=== PATIENT | female | born 1960 | race Caucasian/White ===

== ENCOUNTER → 2019-07-10 | Outpatient (CLI) | payer OTHER ==
[~2019-07-10] MED LIST: AMBIEN 5 MG TABL5 M1; AMITRIPTYLINE H75 M2; FLEXERIL; LANTUS SQ; NORCO 5-325 TA1 EACH PO; NOVOLOG100 UNIT/1; OXYIR5 MG PO; SAVELLA50 MG; VITAMIN B COMP1 EAC7 PO; VITAMIN D32000 UNIT OR; ZYRTEC10 M2
== END ==
LOC: M.ULTRA 09:13
DX: R16.0 Hepatomegaly, not elsewhere classified (principal); K76.0 Fatty (change of) liver, not elsewhere classified; R74.8 Abnormal levels of other serum enzymes